=== PATIENT | female | born 1975 | race Caucasian/White ===

== ENCOUNTER 2019-08-28 02:29 | Emergency (ER) | payer MEDICAID ==
[~2019-08-28] VITALS: Ht 165.1 cm; Wt 86.2 kg
[2019-08-28 02:32] VITALS: BP 139/90
--- NOTE | 2019-08-28 02:32 | NUR ---
TO BED # 07 AMBULATORY
--- NOTE | 2019-08-28 02:35 | NUR ---
PT 44 Y/O FEMALE BIB SELF FOR C/O GENRALIZED ITCHING ALL OVER. 0/10 PAIN. NO RASH NOTED ON SKIN . SKIN IS WARM AND DRY TO TOUCH. PT ADMITS TO HAVING SCABIES X 1 MONTH AGO. RESPIRATIONS ARE EVEN AND UNLABORED. AFEBRILE. DENIES COUGH. DENIES N/V/D. PT ADMITS TO SMOKING 1/2 PACK A DAY SINCE SHE WAS 20 YRS OLD. PT RESTING IN BED SITTING UPRIGHT. BED LOCKED AND IN LOWEST POSITION. MED HX: NONE ALLERGIES: NONE
--- NOTE | 2019-08-28 02:39 | NUR ---
Dr. Thayer examining patient.
--- NOTE | 2019-08-28 02:50 | NUR ---
Patient discharged with v/s stable. Written and verbal after care instructions given and explained. Patient alert, oriented and verbalized understanding of instructions. Ambulatory with steady gait. All questions addressed prior to discharge. ID band removed. Patient advised to follow up with PMD. Rx of PREDNISONE, BENADRYL given. Patient educated on indication of medication including possible reaction and side effects. Opportunity to ask questions provided and answered.
[2019-08-28 02:52] VITALS: BP 139/90
== END 2019-08-28 02:50 | disposition home or self-care (01) ==
LOC: MED 02:29
DX: L29.9 Pruritus, unspecified (principal); F17.200 Nicotine dependence, unspecified, uncomplicated
CPT/HCPCS: 99283